=== PATIENT | female | born 1990 | race Two or more races ===

== ENCOUNTER 2021-12-17 14:13 | Emergency (ER) | payer MEDICAID, OTHER ==
[~2021-12-17] VITALS: Ht 167.6 cm; Wt 63.6 kg
[2021-12-17 14:36] VITALS: BP 144/87
[2021-12-17] MEDS ORDERED: BUPR1FIL7 SL (14:46)
[2021-12-17] MEDS ORDERED: FLUO10CA24 PO (14:46)
[2021-12-17] MEDS ORDERED: TRAZ-252 PO (14:46)
[2021-12-17] MEDS ORDERED: QUET25TA PO (14:46)
[2021-12-17] MEDS ORDERED: DOCU-350 PO (14:51)
[2021-12-17] MEDS ORDERED: TRAZ-257 PO (14:51)
[2021-12-17] MEDS ORDERED: FLUO20CA36 PO (14:51)
== END 2021-12-17 19:13 | disposition left against medical advice (07) ==
LOC: EDUNIT# 14:13 → EMS 14:16
DX: Z53.21 Procedure and treatment not carried out due to patient leaving prior to being seen by health care provider (principal)